=== PATIENT | male | born 2000 | race Caucasian/White ===

== ENCOUNTER 2021-09-26 14:44 | Inpatient (IN) | payer OTHER ==
[2021-09-26] MEDS ORDERED: Ondansetron PF 4 MG/2 ML Vial ONE (14:54)
[2021-09-26] MEDS ORDERED: Boostrix 0.5 ML (Tdap) VIAL ONE (15:00)
[2021-09-26 15:13] LABS: #Basophils 0.1 thou/uL (0.0-0.2); #Eosinphils 0.7 thou/uL (0.0-0.7); #Lymphocytes 4.5 thou/uL (1.20-3.40); #Monocytes 1.2 thou/uL (0.11-0.59); #Neutrophils 12.4 thou/uL (1.40-6.50); %Basophils 0.4 % (0.0-1.0); %Eosinophils 3.7 % (0.0-10.0); %Lymphocytes 23.8 % (28.0-48.0); %Monocytes 6.4 % (0.0-4.0); %Neutrophils 65.6 % (31.0-61.0); Hemoglobin 16.8 g/dL (14.0-18.0); Mean Corpuscular HGB CONC 34.2 g/dL (32.0-36.0); Mean Corpuscular Hemoglobin 33.4 pg (25.0-35.0); Mean Corpuscular Volume 97.7 fL (78.0-98.0); Mean Platelet Volume 6.9 fL (7.4-10.4); Platelet Count 425 thou/uL (130-400); Red Blood Cell (RBC) Count 5.04 mill/uL (4.00-5.20)
[2021-09-26] MEDS ORDERED: CEFAZOLIN 2 GM in Sodium Chloride 0.9% 100 ML IVPB SCH (15:15)
[2021-09-26 15:24] LABS: Prothrombin Time 13.8 sec (12.0-14.7)
[2021-09-26 15:25] LABS: PTT 23.5 sec (22.9-36.1)
[2021-09-26] MEDS ORDERED: Fentanyl 100 MCG/2 ML VIAL ONE (15:35)
[2021-09-26 15:36] LABS: Acetaminophen Less than 10.0 mcg/mL (10.0-30.0); Alcohol Less than 10 mg/dL (Less than 10); Salicylate Less than 8.0 mg/dL (15.0-30.0)
[2021-09-26] MEDS ORDERED: CEFAZOLIN 2 GM VIAL ONE (15:38)
[2021-09-26 15:42] LABS: ALT (SGPT) 28 U/L (8-55); AST (SGOT) 38 U/L (5-34); Albumin 4.3 g/dL (3.5-5.0); Alkaline Phosphatase 85 U/L (50-130); Anion Gap 14 mmol/L (10-20); BUN (Urea Nitrogen) 13 mg/dL (8.9-20.6); Bilirubin, Total 1.5 mg/dL (0.2-1.2); Calc. Creatinine Clearance 0 mL/min (70-130); Calcium 9.3 mg/dL (7.8-10.44); Carbon Dioxide 23 mmol/L (22-29); Chloride 104 mmol/L (98-107); Globulin 2.7 g/dL (2.4-3.5); Glucose 149 mg/dL (70-105); Potassium 3.5 mmol/L (3.5-5.1); Sodium 137 mmol/L (136-145)
[2021-09-26] MEDS ORDERED: Dextrose 50% Abboject 50 ML SYRINGE SLOW IVP PRN (16:19)
[2021-09-26] MEDS ORDERED: hydrALAZINE 20 MG/ML VIAL SLOW IVP PRN (16:19)
[2021-09-26] MEDS ORDERED: Dextrose 5% in Water 1,000 ML IV PRN (16:19)
[2021-09-26] MEDS ORDERED: traMADol HCl 50 MG TAB PO PRN (16:22)
[2021-09-26] MEDS ORDERED: Lidocaine 1% w/Epinephrine 1:100K 20 ML VIAL ONE (16:38)
[2021-09-26] MEDS: Ondansetron PF 4 MG/2 ML Vial IVP PRN (19:14)
[2021-09-26] MEDS: traMADol HCl 50 MG TAB PO PRN (20:38)
[2021-09-26] MEDS: Famotidine 20 MG TAB PO SCH (20:39)
[2021-09-26] MEDS: Sodium Chloride 0.9% 1,000 ML IV SCH (20:40)
[2021-09-26 21:00] VITALS: BMI 25.3
[2021-09-26] MEDS: Senokot S 8.6-50 MG TAB PO SCH (21:12)
[2021-09-26] MEDS: Acetaminophen 500 MG TAB PO SCH ×2 (21:12→23:54)
[2021-09-26 23:26] LABS: SARS-CoV-2 NAA Rapid Test Not Detected (NotDetected)
[2021-09-27] MEDS: Ondansetron PF 4 MG/2 ML Vial IVP PRN ×2 (02:57→09:18)
[2021-09-27] MEDS: Sodium Chloride 0.9% 1,000 ML IV SCH ×3 (03:28→23:47)
[2021-09-27 06:08] LABS: #Lymphocytes 0.9 thou/uL (1.20-3.40); #Monocytes 1.9 thou/uL (0.11-0.59); #Neutrophils 14.4 thou/uL (1.40-6.50); %Basophils 0.1 % (0.0-1.0); %Eosinophils 0.1 % (0.0-10.0); %Lymphocytes 5.2 % (28.0-48.0); %Monocytes 11.1 % (0.0-4.0); %Neutrophils 83.6 % (31.0-61.0); Hemoglobin 16.5 g/dL (14.0-18.0); Mean Corpuscular HGB CONC 34.1 g/dL (32.0-36.0); Mean Corpuscular Hemoglobin 33.2 pg (25.0-35.0); Mean Corpuscular Volume 97.4 fL (78.0-98.0); Mean Platelet Volume 7.3 fL (7.4-10.4); Platelet Count 305 thou/uL (130-400); RBC Distribution Width 11.8 % (11.5-14.5); Red Blood Cell (RBC) Count 4.99 mill/uL (4.00-5.20); White Blood Cell (WBC) Count 17.3 thou/uL (4.8-10.8)
[2021-09-27] MEDS: Acetaminophen 500 MG TAB PO SCH ×4 (06:15→23:44)
[2021-09-27] MEDS: Cyclobenzaprine 10 MG TAB PO PRN ×2 (06:15→12:54)
[2021-09-27 06:35] LABS: Anion Gap 10 mmol/L (10-20); BUN (Urea Nitrogen) 13 mg/dL (8.9-20.6); Calc. Creatinine Clearance 134 mL/min (70-130); Carbon Dioxide 25 mmol/L (22-29); Chloride 104 mmol/L (98-107); Glucose 138 mg/dL (70-105); Magnesium 1.6 mg/dL (1.7-2.2); Potassium 4.3 mmol/L (3.5-5.1); Sodium 135 mmol/L (136-145)
[2021-09-27 09:16] LABS: Bacteria/HPF None Seen HPF (None Seen); Bilirubin Negative (Negative); Blood, Urine Negative (Negative); Clarity Clear (Clear); Glucose, Urine (Dipstick) 50 mg/dL (Negative); Ketone, Urine Negative (Negative); Leukocyte Negative Leu/uL (Negative); Nitrite Negative (Negative); Protein, Urine (Dipstick) 50 mg/dL (Neg-Trace); RBC/HPF 0-3 HPF (0-3); Specific Gravity, Urine 1.037 (1.002-1.036); Squamous Epithelial 0-3 HPF (0-3); Urobilinogen Normal mg/dL (Less than 2); WBC/HPF 0-3 HPF (0-3)
[2021-09-27 09:17] LABS: Urine Culture Reflex No No
[2021-09-27] MEDS: traMADol HCl 50 MG TAB PO PRN (09:18)
[2021-09-27] MEDS: Famotidine 20 MG TAB PO SCH ×2 (09:20→22:52)
[2021-09-27] MEDS: Polyethylene Glycol 3350 17 GM Packet PO SCH (09:22)
[2021-09-27] MEDS: Senokot S 8.6-50 MG TAB PO SCH ×2 (09:22→22:52)
[2021-09-27 09:24] LABS: Amphetamine Not Detected (NotDetected); Barbiturates Screen Not Detected (NotDetected); Benzodiazepine Screen Not Detected (NotDetected); Cocaine Metabolite Screen Not Detected (NotDetected); Methadone Not Detected (NotDetected); Methamphetamine Not Detected (NotDetected); Opiate Screen Not Detected (NotDetected); Oxycodone Screen Not Detected (NotDetected); Phencyclidine (PCP) Not Detected (NotDetected); THC/Cannabinoid Screen Not Detected (NotDetected); Tricyclic Screen Not Detected (NotDetected)
[2021-09-27] MEDS: Scopolamine 1.5 mg/72 hour Patch TD SCH (14:43)
[2021-09-27] MEDS: Magnesium 2 GM/50 ML(in water) 2 GM in Premix Bag 1 BAG IVPB SCH ×2 (18:52→20:17)
[2021-09-28] MEDS: Acetaminophen 500 MG TAB PO SCH ×2 (05:04→13:47)
[2021-09-28] MEDS: Sodium Chloride 0.9% 1,000 ML IV SCH ×3 (05:04→21:32)
[2021-09-28 06:29] LABS: #Eosinphils 0.1 thou/uL (0.0-0.7); #Lymphocytes 1.2 thou/uL (1.20-3.40); #Monocytes 1.9 thou/uL (0.11-0.59); #Neutrophils 12.8 thou/uL (1.40-6.50); %Basophils 0.2 % (0.0-1.0); %Eosinophils 0.7 % (0.0-10.0); %Lymphocytes 7.6 % (28.0-48.0); %Monocytes 11.8 % (0.0-4.0); %Neutrophils 79.7 % (31.0-61.0); Mean Corpuscular HGB CONC 33.6 g/dL (32.0-36.0); Mean Corpuscular Hemoglobin 33.6 pg (25.0-35.0); Mean Platelet Volume 7.3 fL (7.4-10.4); Platelet Count 278 thou/uL (130-400); RBC Distribution Width 11.9 % (11.5-14.5); Red Blood Cell (RBC) Count 4.48 mill/uL (4.00-5.20); White Blood Cell (WBC) Count 16.1 thou/uL (4.8-10.8)
[2021-09-28 06:50] LABS: Anion Gap 12 mmol/L (10-20); BUN (Urea Nitrogen) 12 mg/dL (8.9-20.6); Calc. Creatinine Clearance 127 mL/min (70-130); Calcium 8.8 mg/dL (7.8-10.44); Carbon Dioxide 26 mmol/L (22-29); Chloride 103 mmol/L (98-107); Glucose 101 mg/dL (70-105); Magnesium 2.5 mg/dL (1.7-2.2); Phosphorus 2.4 mg/dL (2.3-4.7); Potassium 4.5 mmol/L (3.5-5.1); Sodium 136 mmol/L (136-145)
[2021-09-28] MEDS ORDERED: fentaNYL Citrate/PF 100 MCG/2 ML SYRINGE ONE (13:00)
[2021-09-28] MEDS ORDERED: HYDROmorphone 0.5 MG/0.5 ML SYRINGE ONE (13:00)
[2021-09-28] MEDS ORDERED: Sodium Chloride 0.9% 1,000 ML IV SCH (13:15)
[2021-09-28] MEDS ORDERED: Morphine 4 MG/ML VIAL SLOW IVP PRN (13:16)
[2021-09-28] MEDS: Polyethylene Glycol 3350 17 GM Packet PO SCH (13:46)
[2021-09-28] MEDS: Senokot S 8.6-50 MG TAB PO SCH ×2 (13:47→21:30)
[2021-09-28] MEDS: Famotidine 20 MG TAB PO SCH (13:47)
[2021-09-28] MEDS ORDERED: Piperacillin/Tazobactam 3.375 GM VIAL ONE (13:49)
[2021-09-28] MEDS ORDERED: Sodium Chloride 0.9% 100 ML ONE (13:50)
[2021-09-28] MEDS ORDERED: Rocuronium Bromide 10 MG/ML (10ML VIAL) ONE (14:00)
[2021-09-28] MEDS ORDERED: Ondansetron PF 4 MG/2 ML Vial ONE (14:00)
[2021-09-28] MEDS ORDERED: Piperacillin/Tazobactam 3.375 GM in Sodium Chloride 0.9% 100 ML IVPB SCH ×2 (14:00→18:00)
[2021-09-28] MEDS ORDERED: Succinylcholine 200 MG/10 ml SYRINGE FS ONE (14:00)
[2021-09-28] MEDS ORDERED: PROPOFOL 200 MG/20 ML VIAL ONE (14:00)
[2021-09-28] MEDS ORDERED: Glycopyrrolate 0.2 MG/ML 5 ML SYRINGE ONE (14:00)
[2021-09-28] MEDS ORDERED: Lidocaine 1% PF 5 ML VIAL ONE (14:00)
[2021-09-28] MEDS ORDERED: Dexamethasone 20 MG/5 ML VIAL ONE (14:00)
[2021-09-28] MEDS ORDERED: Ketorolac Tromethamine 30 MG/ML VIAL ONE ×2 (14:00→16:53)
[2021-09-28] MEDS ORDERED: HYDROmorphone 10 mg/100 ml CADD IVPB PRN (16:31)
[2021-09-28] MEDS ORDERED: Naloxone HCl 0.4 mg/ml Vial IV PRN (16:31)
[2021-09-28] MEDS ORDERED: diphenhydrAMINE 25 MG CAP PO PRN (16:31)
[2021-09-28] MEDS ORDERED: diphenhydrAMINE 50 MG/ML VIAL IVP PRN (16:31)
[2021-09-28] MEDS ORDERED: diphenhydrAMINE 50 MG/ML VIAL IM PRN (16:31)
[2021-09-28] MEDS ORDERED: Promethazine HCl 25 MG/ML VIAL IM PRN (16:31)
[2021-09-28] MEDS ORDERED: hydrALAZINE 20 MG/ML VIAL ONE ×3 (16:43→17:14)
[2021-09-28] MEDS ORDERED: Communication Order-Pharmacy FS PRN (16:45)
[2021-09-28] MEDS ORDERED: HYDROmorphone 10 MG in Sodium Chloride 0.9% 95 ML IVPB PRN (17:15)
[2021-09-28] MEDS: Ketorolac Tromethamine 30 MG/ML VIAL IVP SCH ×2 (17:20→21:35)
[2021-09-28] MEDS ORDERED: Dexamethasone 4 mg/ml Vial ONE (17:30)
[2021-09-28] MEDS ORDERED: Famotidine/PF 20 mg/2ml Vial ONE (17:31)
[2021-09-28] MEDS ORDERED: diphenhydrAMINE 50 MG/ML VIAL ONE (17:31)
[2021-09-28] MEDS: Piperacillin/Tazobactam 3.375 GM in Sodium Chloride 0.9% 100 ML IVPB SCH (21:29)
[2021-09-28] MEDS: Famotidine/PF 20 mg/2ml Vial SLOW IVP SCH (21:29)
[2021-09-28 22:18] LABS: #Lymphocytes 0.3 thou/uL (1.20-3.40); #Neutrophils 10.7 thou/uL (1.40-6.50); %Eosinophils 0.1 % (0.0-10.0); %Lymphocytes 2.7 % (28.0-48.0); %Monocytes 8.2 % (0.0-4.0); Hemoglobin 15.5 g/dL (14.0-18.0); Mean Corpuscular HGB CONC 33.1 g/dL (32.0-36.0); Mean Corpuscular Hemoglobin 32.9 pg (25.0-35.0); Mean Corpuscular Volume 99.3 fL (78.0-98.0); Mean Platelet Volume 7.2 fL (7.4-10.4); Platelet Count 279 thou/uL (130-400); RBC Distribution Width 11.9 % (11.5-14.5); Red Blood Cell (RBC) Count 4.72 mill/uL (4.00-5.20)
[2021-09-28 22:34] LABS: Lactic Acid 1.2 mmol/L (0.5-2.2)
[2021-09-28 22:37] LABS: Anion Gap 13 mmol/L (10-20); BUN (Urea Nitrogen) 13 mg/dL (8.9-20.6); Calc. Creatinine Clearance 170 mL/min (70-130); Calcium 8.3 mg/dL (7.8-10.44); Carbon Dioxide 24 mmol/L (22-29); Chloride 104 mmol/L (98-107); Glucose 125 mg/dL (70-105); Phosphorus 2.7 mg/dL (2.3-4.7); Potassium 4.6 mmol/L (3.5-5.1); Sodium 136 mmol/L (136-145)
[2021-09-29 05:27] LABS: #Lymphocytes 0.5 thou/uL (1.20-3.40); #Monocytes 1.4 thou/uL (0.11-0.59); #Neutrophils 7.8 thou/uL (1.40-6.50); %Basophils 0.1 % (0.0-1.0); %Eosinophils 0.1 % (0.0-10.0); %Lymphocytes 5.3 % (28.0-48.0); %Monocytes 14.4 % (0.0-4.0); %Neutrophils 80.1 % (31.0-61.0); Hemoglobin 14.4 g/dL (14.0-18.0); Mean Corpuscular HGB CONC 33.1 g/dL (32.0-36.0); Mean Corpuscular Hemoglobin 33.3 pg (25.0-35.0); Platelet Count 310 thou/uL (130-400); RBC Distribution Width 11.9 % (11.5-14.5); Red Blood Cell (RBC) Count 4.33 mill/uL (4.00-5.20); White Blood Cell (WBC) Count 9.8 thou/uL (4.8-10.8)
[2021-09-29] MEDS: Sodium Chloride 0.9% 1,000 ML IV SCH ×3 (05:31→21:42)
[2021-09-29] MEDS: Ketorolac Tromethamine 30 MG/ML VIAL IVP SCH ×4 (05:31→21:44)
[2021-09-29] MEDS: Piperacillin/Tazobactam 3.375 GM in Sodium Chloride 0.9% 100 ML IVPB SCH ×3 (05:31→21:42)
[2021-09-29 06:20] LABS: Calcium 8.5 mg/dL (7.8-10.44); Chloride 104 mmol/L (98-107); Potassium 4.4 mmol/L (3.5-5.1); Sodium 136 mmol/L (136-145)
[2021-09-29 06:21] LABS: Glucose 129 mg/dL (70-105)
[2021-09-29 06:23] LABS: Anion Gap 12 mmol/L (10-20); Carbon Dioxide 24 mmol/L (22-29)
[2021-09-29 06:24] LABS: Calc. Creatinine Clearance 129 mL/min (70-130)
[2021-09-29 06:25] LABS: BUN (Urea Nitrogen) 16 mg/dL (8.9-20.6)
[2021-09-29 06:26] LABS: Magnesium 2.1 mg/dL (1.7-2.2)
[2021-09-29 06:28] LABS: Lactic Acid 1.3 mmol/L (0.5-2.2)
[2021-09-29 06:29] LABS: Phosphorus 3.4 mg/dL (2.3-4.7)
[2021-09-29] MEDS: Senokot S 8.6-50 MG TAB PO SCH ×2 (08:48→21:43)
[2021-09-29] MEDS: Famotidine/PF 20 mg/2ml Vial SLOW IVP SCH ×2 (08:48→21:43)
[2021-09-30] MEDS: Sodium Chloride 0.9% 1,000 ML IV SCH ×2 (04:46→18:02)
[2021-09-30] MEDS: Ketorolac Tromethamine 30 MG/ML VIAL IVP SCH ×4 (04:46→21:04)
[2021-09-30] MEDS: Piperacillin/Tazobactam 3.375 GM in Sodium Chloride 0.9% 100 ML IVPB SCH ×3 (04:52→21:04)
[2021-09-30] MEDS: Famotidine/PF 20 mg/2ml Vial SLOW IVP SCH ×2 (08:31→21:04)
[2021-09-30] MEDS: Senokot S 8.6-50 MG TAB PO SCH ×3 (08:33→20:12)
[2021-09-30] MEDS: Scopolamine 1.5 mg/72 hour Patch TD SCH (14:10)
[2021-09-30] MEDS ORDERED: traMADol HCl 50 MG TAB PO PRN (16:21)
[2021-09-30] MEDS: Acetaminophen 500 MG TAB PO SCH ×2 (17:33→23:45)
[2021-09-30] MEDS: traMADol HCl 50 MG TAB PO SCH ×2 (17:35→23:46)
[2021-09-30] MEDS ORDERED: Acetaminophen 500 MG TAB PO SCH (18:00)
[2021-10-01] MEDS: Ketorolac Tromethamine 30 MG/ML VIAL IVP SCH (04:44)
[2021-10-01 05:30] LABS: #Eosinphils 0.7 thou/uL (0.0-0.7); #Lymphocytes 0.8 thou/uL (1.20-3.40); #Monocytes 1.2 thou/uL (0.11-0.59); #Neutrophils 8.5 thou/uL (1.40-6.50); %Basophils 0.3 % (0.0-1.0); %Eosinophils 5.9 % (0.0-10.0); %Lymphocytes 6.8 % (28.0-48.0); %Neutrophils 76.1 % (31.0-61.0); Hemoglobin 12.8 g/dL (14.0-18.0); Mean Corpuscular HGB CONC 33.3 g/dL (32.0-36.0); Mean Corpuscular Hemoglobin 33.3 pg (25.0-35.0); Mean Platelet Volume 6.8 fL (7.4-10.4); Platelet Count 322 thou/uL (130-400); RBC Distribution Width 11.6 % (11.5-14.5); Red Blood Cell (RBC) Count 3.83 mill/uL (4.00-5.20); White Blood Cell (WBC) Count 11.2 thou/uL (4.8-10.8)
[2021-10-01 05:36] LABS: Anion Gap 12 mmol/L (10-20); BUN (Urea Nitrogen) 16 mg/dL (8.9-20.6); Calc. Creatinine Clearance 176 mL/min (70-130); Calcium 8.6 mg/dL (7.8-10.44); Carbon Dioxide 25 mmol/L (22-29); Chloride 104 mmol/L (98-107); Glucose 92 mg/dL (70-105); Magnesium 1.9 mg/dL (1.7-2.2); Phosphorus 3.8 mg/dL (2.3-4.7); Potassium 3.8 mmol/L (3.5-5.1); Sodium 137 mmol/L (136-145)
[2021-10-01] MEDS: Acetaminophen 500 MG TAB PO SCH ×3 (05:51→18:06)
[2021-10-01] MEDS: Piperacillin/Tazobactam 3.375 GM in Sodium Chloride 0.9% 100 ML IVPB SCH ×3 (05:51→21:08)
[2021-10-01] MEDS: traMADol HCl 50 MG TAB PO SCH ×3 (05:52→18:06)
[2021-10-01] MEDS: Famotidine/PF 20 mg/2ml Vial SLOW IVP SCH ×2 (09:00→21:08)
[2021-10-01] MEDS: Enoxaparin Sodium 40 MG/0.4 ML SYRINGE SC SCH (09:00)
[2021-10-01] MEDS: Senokot S 8.6-50 MG TAB PO SCH ×4 (09:50→21:08)
[2021-10-01] MEDS: Polyethylene Glycol 3350 17 GM Packet PO SCH (09:50)
[2021-10-01] MEDS ORDERED: Ibuprofen 200 MG TAB PO PRN (11:00)
[2021-10-02] MEDS: traMADol HCl 50 MG TAB PO SCH ×4 (00:05→18:20)
[2021-10-02] MEDS: Acetaminophen 500 MG TAB PO SCH ×4 (00:05→18:20)
[2021-10-02] MEDS: Piperacillin/Tazobactam 3.375 GM in Sodium Chloride 0.9% 100 ML IVPB SCH ×3 (05:04→21:34)
[2021-10-02] MEDS: Famotidine/PF 20 mg/2ml Vial SLOW IVP SCH ×2 (09:45→20:10)
[2021-10-02] MEDS: Enoxaparin Sodium 40 MG/0.4 ML SYRINGE SC SCH (09:45)
[2021-10-02] MEDS: Saccharomyces boulardii 250 MG CAP PO SCH (09:45)
[2021-10-02] MEDS: Polyethylene Glycol 3350 17 GM Packet PO SCH (09:46)
[2021-10-02] MEDS: Senokot S 8.6-50 MG TAB PO SCH ×4 (09:46→20:25)
[2021-10-02 12:48] LABS: #Eosinphils 0.6 thou/uL (0.0-0.7); #Monocytes 1.5 thou/uL (0.11-0.59); #Neutrophils 9.7 thou/uL (1.40-6.50); %Basophils 0.1 % (0.0-1.0); %Eosinophils 4.7 % (0.0-10.0); %Lymphocytes 7.6 % (28.0-48.0); %Monocytes 11.8 % (0.0-4.0); %Neutrophils 75.8 % (31.0-61.0); Mean Corpuscular HGB CONC 32.2 g/dL (32.0-36.0); Mean Corpuscular Hemoglobin 32.1 pg (25.0-35.0); Mean Corpuscular Volume 99.5 fL (78.0-98.0); Mean Platelet Volume 6.4 fL (7.4-10.4); Platelet Count 409 thou/uL (130-400); RBC Distribution Width 11.8 % (11.5-14.5); Red Blood Cell (RBC) Count 4.36 mill/uL (4.00-5.20); White Blood Cell (WBC) Count 12.7 thou/uL (4.8-10.8)
[2021-10-02 13:12] LABS: Anion Gap 15 mmol/L (10-20); BUN (Urea Nitrogen) 12 mg/dL (8.9-20.6); Calc. Creatinine Clearance 187 mL/min (70-130); Calcium 8.8 mg/dL (7.8-10.44); Carbon Dioxide 24 mmol/L (22-29); Chloride 101 mmol/L (98-107); Glucose 96 mg/dL (70-105); Magnesium 1.8 mg/dL (1.7-2.2); Phosphorus 3.4 mg/dL (2.3-4.7); Potassium 3.7 mmol/L (3.5-5.1); Sodium 136 mmol/L (136-145)
[2021-10-03] MEDS: Acetaminophen 500 MG TAB PO SCH ×3 (00:38→13:22)
[2021-10-03] MEDS: traMADol HCl 50 MG TAB PO SCH ×3 (00:41→13:22)
[2021-10-03] MEDS: Piperacillin/Tazobactam 3.375 GM in Sodium Chloride 0.9% 100 ML IVPB SCH (05:31)
[2021-10-03 06:19] LABS: #Basophils 0.1 thou/uL (0.0-0.2); #Eosinphils 0.6 thou/uL (0.0-0.7); #Lymphocytes 1.2 thou/uL (1.20-3.40); #Monocytes 1.5 thou/uL (0.11-0.59); #Neutrophils 7.4 thou/uL (1.40-6.50); %Basophils 0.6 % (0.0-1.0); %Monocytes 13.5 % (0.0-4.0); Hemoglobin 13.3 g/dL (14.0-18.0); Mean Corpuscular HGB CONC 33.3 g/dL (32.0-36.0); Mean Corpuscular Hemoglobin 32.7 pg (25.0-35.0); Mean Corpuscular Volume 98.3 fL (78.0-98.0); Mean Platelet Volume 6.4 fL (7.4-10.4); Platelet Count 406 thou/uL (130-400); RBC Distribution Width 11.5 % (11.5-14.5); Red Blood Cell (RBC) Count 4.07 mill/uL (4.00-5.20); White Blood Cell (WBC) Count 10.7 thou/uL (4.8-10.8)
[2021-10-03 06:45] LABS: Anion Gap 14 mmol/L (10-20); BUN (Urea Nitrogen) 12 mg/dL (8.9-20.6); Calc. Creatinine Clearance 168 mL/min (70-130); Calcium 8.5 mg/dL (7.8-10.44); Carbon Dioxide 26 mmol/L (22-29); Chloride 101 mmol/L (98-107); Glucose 106 mg/dL (70-105); Magnesium 1.9 mg/dL (1.7-2.2); Phosphorus 4.3 mg/dL (2.3-4.7); Potassium 3.6 mmol/L (3.5-5.1); Sodium 137 mmol/L (136-145)
[2021-10-03] MEDS: Famotidine/PF 20 mg/2ml Vial SLOW IVP SCH (08:51)
[2021-10-03] MEDS: Saccharomyces boulardii 250 MG CAP PO SCH (08:52)
[2021-10-03] MEDS: Enoxaparin Sodium 40 MG/0.4 ML SYRINGE SC SCH (08:52)
[2021-10-03] MEDS: Senokot S 8.6-50 MG TAB PO SCH ×2 (11:30)
[2021-10-03] MEDS: Polyethylene Glycol 3350 17 GM Packet PO SCH (11:30)
[2021-10-03 11:39] VITALS: BP 128/78; TEMP 97.7
== END 2021-10-03 13:45 | disposition home or self-care (01) | DRG 957 ==
LOC: ERS 14:44 → SURG A 16:19 → OBSVTOIN 09-27 18:16
PROVIDERS: ADMIT Surgery; ATTEND Surgery
PROC: 0HQ1XZZ Repair Face Skin, External Approach (ICD-10-PCS; 2021-09-26)
PROC: 0DQA0ZZ Repair Jejunum, Open Approach (ICD-10-PCS; principal; 2021-09-28)
PROC: 0DQC0ZZ Repair Ileocecal Valve, Open Approach (ICD-10-PCS; 2021-09-28)
PROC: 3E03329 Introduction of Other Anti-infective into Peripheral Vein, Percutaneous Approach (ICD-10-PCS; 2021-09-28)
DX: S36.438A Laceration of other part of small intestine, initial encounter (principal); K65.8 Other peritonitis; Z20.822 Contact with and (suspected) exposure to COVID-19; Z23 Encounter for immunization; S27.321A Contusion of lung, unilateral, initial encounter; A41.9 Sepsis, unspecified organism; S06.0X9A Concussion with loss of consciousness of unspecified duration, initial encounter; N17.9 Acute kidney failure, unspecified; S01.81XA Laceration without foreign body of other part of head, initial encounter; R40.2361 Coma scale, best motor response, obeys commands, in the field [EMT or ambulance]; R40.2131 Coma scale, eyes open, to sound, in the field [EMT or ambulance]; R40.2241 Coma scale, best verbal response, confused conversation, in the field [EMT or ambulance]; R33.9 Retention of urine, unspecified; V44.5XXA Car driver injured in collision with heavy transport vehicle or bus in traffic accident, initial encounter; Y92.410 Unspecified street and highway as the place of occurrence of the external cause; Z79.899 Other long term (current) drug therapy
CPT/HCPCS: 12011; 36415; 70450; 70486; 71045; 71260; 72125; 72170; 74019; 74177; 80048; 80053; 80306; 80307; 81001; 83605; 83735; 84100; 84484; 85025; 85610; 85730; 86850; 86900; 86901; 90471; 90715; 93005; 96365; 96375; 96376; C1776; G0378; G0390; J0360; J0690; J1100; J1170; J1200; J1650; J1885; J2405; J2543; J2704; J3010; J3475; J3490; J7050; S0028; U0002; U0003; U0005

== ENCOUNTER 2024-04-11 00:55 | Emergency (ER) | payer SELFPAY ==
[2024-04-11] MEDS ORDERED: Ondansetron PF 4 MG/2 ML Vial ONE (01:16)
== END 2024-04-11 06:08 | disposition home or self-care (01) ==
LOC: ERS 00:55
DX: F10.129 Alcohol abuse with intoxication, unspecified (principal); Y90.7 Blood alcohol level of 200-239 mg/100 ml; Z55.6 Problems related to health literacy
CPT/HCPCS: 36415; 80307; 96374; J2405